=== PATIENT | male | born 1960 | race Caucasian/White ===

== ENCOUNTER 2017-03-02 23:17 | Emergency (ER) | payer OTHER ==
[2017-03-02] MEDS ORDERED: Sodium Chloride 0.9% 1,000 ML PRIMARY IV ONE (23:18)
[2017-03-02] MEDS ORDERED: EPINEPHrine Inj (1:1,000) 1 mg/ml amp SUBCUT ONE ×2 (23:18→23:45)
[2017-03-02] MEDS ORDERED: diphenhydrAMINE 50 MG/1 ML VIAL IVP ONE ×2 (23:18→23:58)
[2017-03-02] MEDS ORDERED: DEXAMETHASONE PF 10 MG/1 ML VIAL IVP ONE (23:18)
[2017-03-02] MEDS ORDERED: Famotidine Inj 20 MG in Normal Saline Flush 10 ML IVP ONE (23:18)
[2017-03-02] MEDS ORDERED: DEXAMETHASONE PF 10 MG/1 ML VIAL ONE (23:20)
[2017-03-02] MEDS ORDERED: FAMOTIDINE 20 MG/2 ML VIAL IVP ONE (23:21)
[2017-03-02] MEDS ORDERED: diphenhydrAMINE 50 MG/1 ML VIAL ONE (23:21)
[2017-03-02] MEDS ORDERED: EPINEPHrine Inj (1:1,000) 1 mg/ml amp ONE (23:22)
--- NOTE | 2017-03-02 23:53 | PDOC ---
Allergy Symptoms HPI - General Chief Complaint: Allergic Reaction/Anaphylaxis Stated Complaint: ALLERGIC REACTION Date Seen by Provider: 03/02/17 Time Seen by Provider: 23:20 Source: POSITIVE: Patient, Spouse Exam Limitations: POSITIVE: No limitations Nurse's Notes Reviewed & Considered: Yes - History of Present Illness Initial Comments: Patient comes in tonight with swelling of his lips, tongue, eyelids, a full body rash, and itching. Approximately 30 minutes prior to presentation here in the emergency room patient was eating shrimp and developed the above symptoms. He has never had problems with shellfish in the past. He denies any nausea vomiting or diarrhea, no fever chills or sweats, no chest pain, no cough, no shortness of breath. Body Location Affected: REPORTS: Upper Extremity (L), Upper Extremity (R), Scalp , Face, Ear (R), Ear (L), Neck, Chest, Abdomen, Back Timing: REPORTS: Abrupt Duration: 1/2 hour Severity: Severe Quality: REPORTS: Burning, Itching Associated Symptoms: REPORTS: Skin Rash, Itching, Swelling, Mild Shortness of Breath, Troubles Swallowing Identified Causes: REPORTS: Possibly (ate shellfish 30 min prior to symptoms) When Exposed: REPORTS: Just Prior to Sx Onset Suspected Etiology: REPORTS: Shellfish Similar Symptoms Previously: No Recent Care Received: REPORTS: Denies Treatment Prior To Arrival: REPORTS: 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 Any Prior Injuries Related to Current Complaint?: No - Patient Home Medications Home Medications: Home Medications Atorvastatin Calcium 40 mg PO DAILY 03/02/17 Flunisolide 25 mcg RNOS PRN 03/02/17 Losartan Potassium 100 mg PO DAILY 03/02/17 Allopurinol 100 mg PO BID 03/03/17 Alprazolam 1 mg PO BID 03/03/17 Diltiazem HCl [Tiazac] 300 mg PO DAILY 03/03/17 Hydrochlorothiazide 25 mg PO DAILY 03/03/17 Naproxen [Naprosyn] 500 mg PO BID 03/03/17 - Patient Allergies Allergies/Adverse Reactions: Allergies Allergy/AdvReac Type Severity Reaction Status Date / Time No Known Allergies Allergy Unverified 03/02/17 23:48 ROS - Limitations ROS Limitations: No Limitations Constitution: REPORTS: Denies Symptoms Cardiovascular: REPORTS: Denies Cardiac Symptoms Respiratory: REPORTS: Denies Resp Symptoms Neurological: REPORTS: Denies Neuro Symptoms Gastrointestinal: REPORTS: Denies GI Symptoms Endocrine: REPORTS: Denies Symptoms Musculoskeletal: REPORTS: Denies MS Symptoms Genitourinary: REPORTS: Denies Symptoms Eyes: REPORTS: Itching Eyes ENT: REPORTS: Trouble Swallowing, Throat Swelling, Lip Swelling Skin: REPORTS: Rash Lympathic: REPORTS: Denies Lympathic Symptoms Immunologic: POSITIVE: Denies Symptoms Psychiatric: POSITIVE: Denies Psych Symptoms Allergy Symptoms Physical Exam - General Appearance General Appearance: POSITIVE: Alert, Cooperative, No Evidence of Trauma, Moderate Distress - HEENT Head / Face: POSITIVE: Facial Swelling Eyes: POSITIVE: PERRL, EOM's Intact, Conjunctivae Uninjured, No Nystagmus, Sclera Normal Ears: POSITIVE: Swelling Nose: POSITIVE: Rhinorrhea, Mucosal Swelling Oropharynx: POSITIVE: External Inspection Nml, Airway Intact, Voice Normal, Moist Mucous Membranes, No Oral Injury, Increase Saliva Secretion, Angioedema ( facial), Swelling Dental: POSITIVE: No Dental Injury - Pupils Pupil Size: 5 mm: Bilateral - Neck Neck: POSITIVE: Normal Inspection, No Apparent Injury - Respiratory Respiratory: POSITIVE: No Respiratory Distress, Breath Sounds Normal - Cardiovascular Cardiovascular: POSITIVE: Regular Rate and Rhythm, Heart Sounds Normal, Equal Pulses, Strong Pulses - Abdomen Abdomen: Soft: (All Quadrants), Normal Bowel Sounds: (All Quadrants), Denies Tenderness: (All Quadrants), No Splenomegaly: (All Quadrants), No Hepatomegaly: (All Quadrants), No Guarding: (All Quadrants), No Rebound: (All Quadrants), No Palpable Pulse: (All Quadrants), No Palpabale Mass: (All Quadrants), No Distention: (All Quadrants), No Rigidity: (All Quadrants) - Skin Skin: POSITIVE: Warm, Dry, Rash - Extremities Extremity: Non-Tender: (All Extremities), Normal ROM: (All Extremities), Normal Inspection: (All Extremities) - Neurological / Psychological Neurological: POSITIVE: Oriented X3, java core developer Normal As Tested, Motor Normal, Sensation Normal, 5, 6 Allergy Symptoms Progress - Treatment Treatment: POSITIVE: Oxygen, Diphenhydramine, Epinephrine, Dexamethasone, Famotidine - Patient's Progress Re-examine Time: 01:59 Status: POSITIVE: Improved MDM / ED Course: Patient was examined. An IV was started. He received Pepcid, Benadryl, epinephrine, and dexamethasone. He was observed here in the emergency room for approximately 2-1/2 hours and did improve. Assessment: Allergic reaction likely to shellfish. Plan: Discharge home Benadryl in 6 hours. Return to the emergency room if swelling increases in his lips, tongue, increased shortness of breath, or other concerns. - Consult Counseled: POSITIVE: Patient, Family, RE: DX, RE: Need for F/U Patient Care Time - Estimated PCT Patient Care Time (In Minutes): 45 Vital Signs - Recent Vital Signs Vital Signs: Vital Signs (Last 8 hours) Temp Pulse Resp BP Pulse Ox 03/02/17 23:17 96.1 F L 97 18 92/67 91 - VS Reviewed Vital Signs Reviewed: Yes Discharge Clinical Impression: Allergic reaction to shellfish Condition: Stable Patient Instructions Given at Discharge: Anaphylaxis (ED)
[2017-03-03] MEDS ORDERED: diphenhydrAMINE 50 MG/1 ML VIAL ONE
[2017-03-03 01:15] VITALS: TEMP 96.1
[2017-03-03] MEDS ORDERED: diphenhydrAMINE 25 MG CAPSULE PO SCH (02:15)
[2017-03-03 02:37] VITALS: RESP 16
== END 2017-03-03 02:15 | disposition home or self-care (01) ==
LOC: ER 23:17
DX: T78.1XXA Other adverse food reactions, not elsewhere classified, initial encounter (principal); R21 Rash and other nonspecific skin eruption; R06.02 Shortness of breath; R13.19 Other dysphagia
CPT/HCPCS: 96374; 96375; 99283 ×2; J0171; J1100; J1200 ×2; Q0163; S0028; J7030